=== PATIENT | male | born 1965 | race Caucasian/White ===

== ENCOUNTER 2021-10-08 14:54 | Outpatient (AMB) | payer MEDICARE, MEDICAID, SELFPAY ==
--- NOTE | 2021-10-08 14:58 | MHC.OFFVIS ---
Intake Intake Visit Reasons: 1 year PVR Follow Up Allergies codeine [CODEINE] Allergy (Unknown, Unverified 03/07/20 15:59) NAUSEA & VOMITING erythromycin base [ERYTHROMYCIN BASE] Allergy (Unknown, Unverified 03/07/20 15:59) NAUSEA & VOMITING Erythromycin Allergy (Unknown, Uncoded 08/31/19 00:00) HPI HPI Comments History of Present Illness Details Bryan is a very pleasant male. He is a patient of Dr. Pompa. He is seen for the following urologic conditions - has combination of CPPS with left orchalgia and urge/frequency - erectile dysfunction - high tone pelvic floor Main issue is feeling of low energy Concerned about testosterone level Has chronic opioids for pain Will check levels Does respond to tadalafil for erections Refill provided Discussed pelvic floor PT to assist with relaxation and bladder and bowel emptying Referral made Prostatitis/CPPS:? They present for ?evaluation of, chronic pelvic pain syndrome, chronic prostatitis, orchalgia.? He is currently being treated with?- has failed - OAB medications - oxybuytinin, Myrbetriq, antibitoics, alpha blockers.? Symptoms have been present?for many years.? Severity of the symptom?Prostate Symptom Score, severe, have been persistent, and are progressive - worse since colon diversion 3 months ago.? Chronic Prostatitis Symptom Index? Have you experienced pain in any of the following areas ?Yes ? Patient has experienced pain with urination ?Yes ? They have experienced pain with ejaculation ?No ? In the pubic area ?No ? Tip of the penis ?No ? Testicles ?Yes ? Perineal ?Yes ? Pain is present?lower back, perineum, testis, with ejaculation.? Associated conditions include? STDs ?No ? nephrolithiasis ?No ? diabetes ?No ? inflammatory bowel disease ?No ? diverticulitis ?No ? radiation to the pelvis ?No ? surgery ?none ? Type of prostatitis?III - noninflammatory.? Lower Urinary Tract Symptoms:? Erections respond to medications ?Cilais 10mg provided. ? Current visit is for?further evaluation of, lower urinary tract symptoms, predominate obstructive symptoms.? Current treatment includes?observation.? Prostate Symptom Score?Mild (0-8), Bother 3.? Prior Prostate Score?unknown.? Prostate volume?< 30 gm.? Associated conditions? CAD ?No ? CVA ?No ? diabetes ?No ? elevated PSA ?No ? erectile dysfunction ?No ? hematuria ?No ? renal insufficiency ?No ? urge incontinence ?No ? urinary retention ?No ? urinary tract infection ?No ? psychiatric diagnosis ?No ? Testing at next visit will include?bladder scan.? Treatment plan?continue with current medications [facility] Medical History (Updated 10/08/21 @ 15:27 by Tony Lucio MD) Bipolar disorder Bladder outlet obstruction Dysuria Erectile dysfunction due to arterial insufficiency Esophageal injury GERD (gastroesophageal reflux disease) HTN (hypertension) Insomnia Kidney disease Nocturia Panic disorder Prostatitis Weak urinary stream Surgical History History of surgery Review of Systems Const Denies chills and Denies fever(s) Card Reports no additional complaints and Denies syncope Resp Denies cough GI Denies abdominal pain and Denies heartburn Reports as per HPI and Denies change in libido Neuro Denies syncope Psych Denies change in libido Endo Denies change in libido Physical Exam Const General: cooperative, healthy appearing, comfortable and no acute distress Orientation/consciousness: patient oriented x3 HEENT Face and sinus: Yes normal facial exam Mouth: moist mucous membranes Neck Neck: Yes normal visual inspection, Yes full ROM and Yes trachea midline Chest Chest palpation & inspection: normal inspection of the chest Resp Effort & Inspection: normal respiratory effort, able to speak in complete sentences and no respiratory distress GI Inspection: Yes normal to inspection Back/Spine/Pelvis Cervical Spine: normal cervical lordosis Thoracic/Lumbar Spine: thoracic and lumbar spine normal to inspection Skin General skin exam: no rashes or lesions noted Neuro General: patient oriented x3, gait normal, tone normal and moves all extremities Extrem General: Yes normal to inspection and Yes capillary refill normal Office Procedures Post Void Residual Post Residual Void Post Void Residual (PVR): 0 [id number] Void Residual by ultrasound Assessment & Plan Assessment & Plan (1) Erectile dysfunction due to arterial insufficiency: Code(s): N52.01 - Erectile dysfunction due to arterial insufficiency (2) Chronic prostatitis/chronic pelvic pain syndrome: Code(s): N41.1 - Chronic prostatitis; G89.4 - Chronic pain syndrome (3) Prostatitis: Code(s): N41.9 - Inflammatory disease of prostate, unspecified (4) Bladder outlet obstruction: Code(s): N32.0 - Bladder-neck obstruction (5) Hypogonadism in male: Code(s): E29.1 - Testicular hypofunction Plan Labs ordered Prescription provided Referred to PT for pelvic floor relaxation Orders: Orders Follicle Stimulating Hormone Today E29.1 - Testicular hypofunction Lutenizing Hormone Today E29.1 - Testicular hypofunction Testosterone, Total Today E29.1 - Testicular hypofunction, [id number] Prostate Specific Antigen Today E29.1 - Testicular hypofunction, N13.8 - Other obstructive and reflux uropathy, N40.1 - Benign prostatic hyperplasia with lower urinary tract symptoms Testosterone, Free/Total 2 Weeks E29.1 - Testicular hypofunction PT Evaluation and Treatment Today G89.4 - Chronic pain syndrome, N41.1 - Chronic prostatitis AMB Urinalysis Automated Today Z13.9 - Encounter for screening, unspecified AMB Post Void Residual by ultrasound Today R35.1 - Nocturia Medications: New tadalafil as needed 10 mg PO ONCE 30 days PRN 30 tabs 1RF sexual activity N52.01 - Erectile dysfunction due to arterial insufficiency, N52.9 - Male erectile dysfunction, unspecified Patient Instructions: The patient had an opportunity to ask questions regarding treatment plan. All questions were answered. Imaging studies, laboratory studies and physical exam results were discussed and reviewed in detail. No major barriers to understanding were identified. The patient expressed understanding and agreement with the above treatment plan. The patient is aware they should contact our office by phone for worsening of their current condition or the appearance of new symptoms. Compliance is encouraged with any medications and followup testing that is ordered. It is a privilege to be allowed the opportunity to participate in the urologic care of your patient. If you have any questions or concerns regarding treatment for the above conditions please do not hesitate to contact me. The office telephone contact is [phone]. This note is constructed using voice recognition software. While every effort has been made to ensure accuracy coil finisher errors may have been included. Yours sincerely, Dr Tony Lucio MD, [facility] Coding Level of Care Code Est Pt Level 4 (01412) Diagnoses Erectile dysfunction due to arterial insufficiency N52.01 Chronic prostatitis/chronic pelvic pain syndrome N41.1; G89.4 Prostatitis N41.9 Bladder outlet obstruction N32.0 Hypogonadism in male E29.1 CPT Codes Post Residual Void - PVR CPT Code: 12920-Fxme Void Residual by ultrasound ([id number])
== END 2021-10-08 15:27 | disposition home or self-care (01) ==
LOC: HO.HUSH 14:54
PROVIDERS: PCP Internal Medicine; Visit Provider Urology
DX: Z13.9 Encounter for screening, unspecified (principal)
CPT/HCPCS: 99214

== ENCOUNTER → 2021-10-08 14:54 | Outpatient (BNVA) | payer MEDICARE, MEDICAID, SELFPAY | PROVIDERS: PCP Internal Medicine; Visit Provider Urology | DX: N52.01 Erectile dysfunction due to arterial insufficiency (principal); G89.4 Chronic pain syndrome; N41.1 Chronic prostatitis; N32.0 Bladder-neck obstruction; E29.1 Testicular hypofunction | CPT/HCPCS: 51798; 99212 ==

== ENCOUNTER → 2021-11-18 14:12 | Outpatient (BNVA) | payer MEDICARE, MEDICAID, SELFPAY | PROVIDERS: PCP Internal Medicine; Visit Provider Urology | DX: N52.01 Erectile dysfunction due to arterial insufficiency (principal); E29.1 Testicular hypofunction | CPT/HCPCS: 51798; 99212 ==

== ENCOUNTER → 2022-02-18 09:34 | Outpatient (BNVA) | payer MEDICARE, MEDICAID, SELFPAY | PROVIDERS: PCP Internal Medicine; Visit Provider Urology | DX: E11.69 Type 2 diabetes mellitus with other specified complication (principal); N52.1 Erectile dysfunction due to diseases classified elsewhere | CPT/HCPCS: Q3014 ==

== ENCOUNTER → 2022-06-02 13:19 | Outpatient (BNVA) | payer MEDICARE, MEDICAID, SELFPAY | PROVIDERS: PCP Internal Medicine; Visit Provider Urology | DX: E11.69 Type 2 diabetes mellitus with other specified complication (principal); N52.1 Erectile dysfunction due to diseases classified elsewhere; E29.1 Testicular hypofunction; N41.1 Chronic prostatitis; G89.4 Chronic pain syndrome | CPT/HCPCS: 99212 ==

== ENCOUNTER 2022-12-29 14:47 | Outpatient (AMB) | payer MEDICARE, MEDICAID, SELFPAY ==
--- NOTE | 2022-12-29 14:58 | A.OFFVIS_ITS ---
Intake Intake Visit Reasons: 6M PVR Intake Note: Patient is present for PVR/ Urology Med: Sildenafil, Tadalafil Antibiotic Allergy: Erythromycin Blood Thinner: None PVR: 48ml Allergies codeine [CODEINE] Allergy (Unknown, Verified 12/29/22 14:59) NAUSEA & VOMITING erythromycin base [ERYTHROMYCIN BASE] Allergy (Unknown, Verified 12/29/22 14:59) NAUSEA & VOMITING Erythromycin Allergy (Unknown, Uncoded 12/29/22 14:59) Unknown HPI HPI Comments History of Present Illness Details Bryan is a very pleasant male. He is a patient of Dr. Pompa. He is seen for the following urologic conditions - has combination of CPPS with left orchalgia and urge/frequency - erectile dysfunction secondary to diabetes - high tone pelvic floor Continued good response to high-dose PDE5 for erections Six-month follow-up Occasional difficulty with urination Erectile dysfunction with diabetes Partial response to combination erectile therapy 20 mg daily tadalafil with on demand 100 mg sildenafil Prostatitis/CPPS:? They present for ?evaluation of, chronic pelvic pain syndrome, chronic prostatitis, orchalgia.? He is currently being treated with?- no medications - prior OAB medications - oxybuytinin, Myrbetriq, antibitoics, alpha bloc kers.? Symptoms have been present?for many years.? Severity of the symptom?Prostate Symptom Score, severe, have been persistent, and are progressive - worse since colon diversion 3 months ago.? Chronic Prostatitis Symptom Index? Have you experienced pain in any of the following areas ?Yes ? Patient has experienced pain with urination ?Yes ? They have experienced pain with ejaculation ?No ? In the pubic area ?No ? Tip of the penis ?No ? Testicles ?Yes ? Perineal ?Yes ? Pain is present?lower back, perineum, testis, with ejaculation.? Associated conditions include? STDs ?No ? nephrolithiasis ?No ? diabetes ?No ? inflammatory bowel disease ?No ? diverticulitis ?No ? radiation to the pelvis ?No ? surgery ?none ? Type of prostatitis?III - noninflammatory.? Lower Urinary Tract Symptoms:? Erections respond to medications ?Cilais 20mg provided. ? Current visit is for?further evaluation of, lower urinary tract symptoms, predominate obstructive symptoms.? Current treatment includes?observation.? Prostate Symptom Score?Mild (0-8), Bother 3.? Prior Prostate Score?unknown.? Prostate volume?< 30 gm.? Testing at next visit will include?bladder scan.? Treatment plan?continue with current medications [facility] Medical History Bipolar disorder Bladder outlet obstruction Dysuria Erectile dysfunction due to arterial insufficiency Esophageal injury GERD (gastroesophageal reflux disease) HTN (hypertension) Insomnia Kidney disease Nocturia Panic disorder Prostatitis Weak urinary stream Surgical History History of surgery Review of Systems Const Denies chills and Denies fever(s) Card Reports no additional complaints and Denies syncope Resp Denies cough GI Denies abdominal pain and Denies heartburn Reports as per HPI and Denies change in libido Neuro Denies syncope Psych Denies change in libido Endo Denies change in libido Physical Exam Const General: cooperative, healthy appearing, comfortable and no acute distress Orientation/consciousness: patient oriented x3 HEENT Face and sinus: Yes normal facial exam Mouth: moist mucous membranes Neck Neck: Yes normal visual inspection, Yes full ROM and Yes trachea midline Chest Chest palpation & inspection: normal inspection of the chest Resp Effort & Inspection: normal respiratory effort, able to speak in complete sentences and no respiratory distress GI Inspection: Yes normal to inspection Back/Spine/Pelvis Cervical Spine: normal cervical lordosis Thoracic/Lumbar Spine: thoracic and lumbar spine normal to inspection Skin General skin exam: no rashes or lesions noted Neuro General: patient oriented x3, gait normal, tone normal and moves all extremities Extrem General: Yes normal to inspection and Yes capillary refill normal Office Procedures Post Void Residual Post Residual Void Post Void Residual (PVR): 48 [id number] Void Residual by ultrasound Results AMB Urinalysis, Automated UA Leukoctes 0 Jay Jay/uL Last Edit by Velma Salinas [facility] on 12/29/22 15:07 UA Nitrite Negative Last Edit by Velma Salinas A on 12/29/22 15:07 UA Urobilinogen 0.2 mg/dL Last Edit by Velma Salinas A on 12/29/22 15:0 7 UA Protein 0 mg/dL Last Edit by Velma Salinas A on 12/29/22 15:07 UA pH 6.0 Last Edit by Velma Salinas [facility] on 12/29/22 15:07 UA Blood 0 Pieter/uL Last Edit by Velma Salinas A on 12/29/22 15:07 UA Specific [place] 1.030 Last Edit by Velma Salinas A on 12/29/22 15: 07 UA Ketone Negative Last Edit by Velma Salinas A on 12/29/22 15:07 UA Bilirubin 0 mg/dL Last Edit by Velma Salinas A on 12/29/22 15:07 UA Glucose 0 mg/dL Last Edit by Velma Salinas [facility] on 12/29/22 15:07 Results Reviewed Results Reviewed: Laboratory Last Values Urine pH (Auto) 6.0 12/29/22 15:01 Specific [place] (Auto) 1.030 12/29/22 15:01 Urine Protein (Auto) 0 mg/dL 12/29/22 15:01 Glucose (UA)(Auto) 0 mg/dL 12/29/22 15:01 Urine Ketones (Auto) Negative 12/29/22 15:01 Urine Blood (Auto) 0 Pieter/uL 12/29/22 15:01 Urine Nitrite (Auto) Negative 12/29/22 15:01 Urine Bilirubin (Auto) 0 mg/dL 12/29/22 15:01 Urine Urobilinogen (Auto) 0.2 mg/dL 12/29/22 15:01 Leukocyte Esterase (Auto) 0 Jay Jay/uL 12/29/22 15:01 Assessment & Plan Assessment & Plan (1) Erectile dysfunction associated with type 2 diabetes mellitus: Code(s): E11.69 - Type 2 diabetes mellitus with other specified complication; N52.1 - Erectile dysfunction due to diseases classified elsewhere (2) Chronic prostatitis/chronic pelvic pain syndrome: Code(s): N41.1 - Chronic prostatitis; G89.4 - Chronic pain syndrome Plan 6 month follow-up Orders: Orders Prostate Specific Antigen 6 Months E29.1 - Testicular hypofunction AMB Urinalysis Automated Today Z13.9 - Encounter for screening, unspecified AMB Post Void Residual by ultrasound Today N32.0 - Bladder-neck obstruction Patient Instructions: Imaging studies, laboratory and physical exam results were discussed and reviewed in detail. No major barriers to patient understanding were identified. An opportunity to ask questions regarding the treatment plan was provided. All questions were answered. The patient expressed understanding and agreement with the above treatment plan. The patient is aware they should contact our office by phone for worsening of their current condition or the appearance of new urologic symptoms. Compliance is encouraged with any medications and followup testing that is ordered. It is a privilege to participate in the urologic care of your patient. If you have any questions or concerns regarding treatment for the above conditions, or other urologic issues, please do not hesitate to contact me. The office telephone contact is [phone]. This note is constructed using voice recognition software. While every effort has been made to ensure accuracy head baker errors may have been included. Yours sincerely, Dr Tony Lucio MD, [facility] - Urology Providers of Expert, Compassionate Care for the Genitourinary System Coding Level of Care Code Est Pt Level 3 (07746) Diagnoses Erectile dysfunction associated with type 2 diabetes mellitus E11.69; N52.1 Chronic prostatitis/chronic pelvic pain syndrome N41.1; G89.4 CPT Codes Post Residual Void - PVR CPT Code: 62228-Ccaz Void Residual by ultrasound ([id number])
== END 2022-12-29 15:43 | disposition home or self-care (01) ==
PROVIDERS: Visit Provider Urology
DX: E11.69 Type 2 diabetes mellitus with other specified complication (principal); N52.1 Erectile dysfunction due to diseases classified elsewhere; N41.1 Chronic prostatitis; G89.4 Chronic pain syndrome
CPT/HCPCS: 99213

== ENCOUNTER → 2022-12-29 14:47 | Outpatient (BNVA) | payer MEDICARE, MEDICAID, SELFPAY | PROVIDERS: Visit Provider Urology | DX: E11.69 Type 2 diabetes mellitus with other specified complication (principal); N52.1 Erectile dysfunction due to diseases classified elsewhere; N41.1 Chronic prostatitis; G89.4 Chronic pain syndrome | CPT/HCPCS: 51798; 99212 ==

== ENCOUNTER 2023-07-02 15:39 | Outpatient (AMB) | payer MEDICARE, MEDICAID, SELFPAY ==
--- NOTE | 2023-07-02 15:44 | A.OFFVIS_ITS ---
Intake Intake Visit Reasons: 6m psa(set) Intake Note: Patient is Present for Follow Up Urology Medication: Sildenafil, Taldalafil Antibiotic Allergies: Erytromycin Blood Thinners: none Allergies codeine [CODEINE] Allergy (Unknown, Verified 12/29/22 14:59) NAUSEA & VOMITING erythromycin base [ERYTHROMYCIN BASE] Allergy (Unknown, Verified 12/29/22 14:59) NAUSEA & VOMITING Erythromycin Allergy (Unknown, Uncoded 12/29/22 14:59) Unknown Medication List - Last Reconciled 07/02/23 by Tony Lucio MD alcohol swabs (Easy Touch Alcohol Prep Pads) pad topical BID amlodipine 5 mg PO DAILY blood sugar diagnostic (FreeStyle Lite Strips) As directed blood-glucose meter (FreeStyle Lite Meter kit) As directed citalopram 10 mg PO DAILY citalopram 40 mg PO DAILY gabapentin 300 mg PO BID PRN hydrocortisone 2.5% topical lactulose mL PO lancets (FreeStyle Lancets) As directed lisdexamfetamine (Vyvanse) 70 mg PO QAM lisinopril 40 mg PO DAILY methylphenidate HCl 0 mg PO morphine 30 mg PO TID PRN pantoprazole 40 mg PO BID ropinirole 0.5 - 1 mg PO QPM sildenafil 100 mg PO ONCE 30 days tadalafil 20 mg PO DAILY 90 days HPI HPI Comments History of Present Illness Details Bryan is a very pleasant male. He is a patient of Dr. Pompa. He is seen for the following urologic conditions - has combination of CPPS with left orch algia and urge/frequency - erectile dysfunction secondary to diab etes - high tone pelvic floor Continued good response to high-dose PDE5 for erections Six-month follow-up Occasional difficulty with urination Six-month follow-up PSA office Erectile dysfunction with diabetes Partial response to combination erectile therapy 20 mg daily tadalafil with on demand 100 mg sildenafil Prostatitis/CPPS:? They present for ?evaluation of, chronic pelvic pain syndrome, chronic prostatitis, orchalgia.? He is currently being treated with?- no medications - prior OAB medications - oxybuytinin, Myrbetriq, antibitoics, alpha blockers.? Symptoms have been present?for many years.? Severity of the symptom?Prostate Symptom Score, severe, have been persistent, and are progressive - worse since colon diversion 3 months ago.? Chronic Prostatitis Symptom Index? Have you experienced pain in any of the following areas ?Yes ? Patient has experienced pain with urination ?Yes ? They have experienced pain with ejaculation ?No ? In the pubic area ?No ? Tip of the penis ?No ? Testicles ?Yes ? Perineal ?Yes ? Pain is present?lower back, perineum, testis, with ejaculation.? Associated conditions include? STDs ?No ? nephrolithiasis ?No ? diabetes ?No ? inflammatory bowel disease ?No ? diverticulitis ?No ? radiation to the pelvis ?No ? surgery ?none ? Type of prostatitis?III - noninflammatory.? Lower Urinary Tract Symptoms:? Erections respond to medications ?Cilais 20mg provided. ? Current visit is for?further evaluation of, lower urinary tract symptoms, predominate obstructive symptoms.? Current treatment includes?observation.? Prostate Symptom Score?Mild (0-8), Bother 3.? Prior Prostate Score?unknown.? Prostate volume?< 30 gm.? Testing at next visit will include?bladder scan.? Treatment plan?continue with current medications [facility] Medical History Bipolar disorder Bladder outlet obstruction Dysuria Erectile dysfunction due to arterial insufficiency Esophageal injury GERD (gastroesophageal reflux disease) HTN (hypertension) Insomnia Kidney disease Nocturia Panic disorder Prostatitis Weak urinary stream Surgical History History of surgery Review of Systems Const Denies chills and Denies fever(s) Card Reports no additional complaints and Denies syncope Resp Denies cough GI Denies abdominal pain and Denies heartburn Reports as per HPI and Denies change in libido Neuro Denies syncope Psych Denies change in libido Endo Denies change in libido Physical Exam Const General: cooperative, healthy appearing, comfortable and no acute distress Orientation/consciousness: patient oriented x3 HEENT Face and sinus: Yes normal facial exam Mouth: moist mucous membranes Neck Neck: Yes normal visual inspection, Yes full ROM and Yes trachea midline Chest Chest palpation & inspection: normal inspection of the chest Resp Effort & Inspection: normal respiratory effort, able to speak in complete sentences and no respiratory distress GI Inspection: Yes normal to inspection Back/Spine/Pelvis Cervical Spine: normal cervical lordosis Thoracic/Lumbar Spine: thoracic and lumbar spine normal to inspection Skin General skin exam: no rashes or lesions noted Neuro General: patient oriented x3, gait normal, tone normal and moves all extremities Extrem General: Yes normal to inspection and Yes capillary refill normal Assessment & Plan Assessment & Plan (1) Erectile dysfunction associated with type 2 diabetes mellitus: Code(s): E11.69 - Type 2 diabetes mellitus with other specified complication; N52.1 - Erectile dysfunction due to diseases classified elsewhere (2) Bladder outlet obstruction: Code(s): N32.0 - Bladder-neck obstruction Plan Six-month follow-up tele Medications: Refilled tadalafil daily 20 mg PO DAILY 90 tabs 1RF sexual activity 90 days E11.69 - Type 2 diabetes mellitus with other specified complication, N52.1 - Erectile dysfunction due to diseases classified elsewhere sildenafil administer 60 minutes before intended activity 100 mg PO ONCE 30 tabs 1RF sexual activity 30 days N52.01 - Erectile dysfunction due to arterial insufficiency Patient Instructions: Imaging studies, laboratory and physical exam results were discussed and reviewed in detail. No major barriers to patient understanding were identified. An opportunity to ask questions regarding the treatment plan was provided. All questions were answered. The patient expressed understanding and agreement with the above treatment plan. The patient is aware they should contact our office by phone for worsening of their current condition or the appearance of new urologic symptoms. Compliance is encouraged with any medications and followup testing that is ordered. It is a privilege to participate in the urologic care of your patient. If you have any questions or concerns regarding treatment for the above conditions, or other urologic issues, please do not hesitate to contact me. The office telephone contact is [phone]. This note is constructed using voice recognition software. While every effort has been made to ensure accuracy government guard errors may have been included. Yours sincerely, Dr Tony Lucio MD, [facility] - Urology Providers of Expert, Compassionate Care for the Genitourinary System Coding Level of Care Code Est Pt Level 3 (81547) Diagnoses Erectile dysfunction associated with type 2 diabetes mellitus E11.69; N52.1 Bladder outlet obstruction N32.0
== END 2023-07-02 15:57 | disposition home or self-care (01) ==
PROVIDERS: PCP Internal Medicine; Visit Provider Urology
DX: E11.69 Type 2 diabetes mellitus with other specified complication (principal); N52.1 Erectile dysfunction due to diseases classified elsewhere; N32.0 Bladder-neck obstruction
CPT/HCPCS: 99213

== ENCOUNTER → 2023-07-02 15:39 | Outpatient (BNVA) | payer MEDICARE, MEDICAID, SELFPAY | PROVIDERS: PCP Internal Medicine; Visit Provider Urology | DX: E11.69 Type 2 diabetes mellitus with other specified complication (principal); N52.1 Erectile dysfunction due to diseases classified elsewhere; N32.0 Bladder-neck obstruction | CPT/HCPCS: 99212 ==

== ENCOUNTER 2024-02-08 15:03 | Outpatient (AMB) | payer MEDICARE, MEDICAID, SELFPAY ==
--- NOTE | 2024-02-08 15:23 | A.OFFVIS_ITS ---
Intake Visit Reasons: 6M Follow Up-PVR Intake Note: Patient is Present for PVR/UA Check Urology Med: Sildenafil, Tadalafil Antibiotic Allergy:Erythromycin Blood Thinner: none Last PVR: 48mls Todays PVR: Patient has some concerns on his urination [employer] Contractor Required: No Allergies codeine [CODEINE] Allergy (Unknown, Verified 02/08/24 15:33) NAUSEA & VOMITING erythromycin base [ERYTHROMYCIN BASE] Allergy (Unknown, Verified 02/08/24 15:33) NAUSEA & VOMITING Erythromycin Allergy (Unknown, Uncoded 02/08/24 15:33) Unknown Medication List - Last Reconciled 02/08/24 by Tony Lucio MD alcohol swabs (Easy Touch Alcohol Prep Pads) pad topical BID amlodipine 5 mg PO DAILY blood sugar diagnostic (FreeStyle Lite Strips) As directed blood-glucose meter (FreeStyle Lite Meter kit) As directed citalopram 10 mg PO DAILY citalopram 40 mg PO DAILY gabapentin 300 mg PO BID PRN hydrocortisone 2.5% topical lactulose mL PO lancets (FreeStyle Lancets) As directed lisdexamfetamine (Vyvanse) 70 mg PO QAM lisinopril 40 mg PO DAILY methylphenidate HCl 0 mg PO morphine 30 mg PO TID PRN pantoprazole 40 mg PO BID ropinirole 0.5 - 1 mg PO QPM sildenafil 100 mg PO ONCE 30 days tadalafil 20 mg PO DAILY 90 days HPI Comments Details: Bryan is a very pleasant male. He is a patient of Dr. Pompa. He is seen for the following urologic conditions - has combination of CPPS with left orchalgia and urge/frequency - erectile dysfunction secondary to diabetes - high tone pelvic floor Has had flare of pelvic floor issues Continued good response to high-dose PDE5 for erections Six-month follow-up Occasional difficulty with urination Trial rectal diazepam Six-month follow-up PSA Erectile dysfunction with diabetes Partial response to combination erectile therapy 20 mg daily tadalafil with on demand 100 mg sildenafil Prostatitis/CPPS:? They present for ?evaluation of, chronic pelvic pain syndrome, chronic prostatitis, orchalgia.? He is currently being treated with?- no medications - prior OAB medications - oxybuytinin, Myrbetriq, antibitoics, alpha blockers.? Symptoms have been present?for many years.? Severity of the symptom?Prostate Symptom Score, severe, have been persistent, and are progressive - worse since colon diversion 3 months ago.? Chronic Prostatitis Symptom Index? Have you experienced pain in any of the following areas ?Yes ? Patient has experienced pain with urination ?Yes ? They have experienced pain with ejaculation ?No ? In the pubic area ?No ? Tip of the penis ?No ? Testicles ?Yes ? Perineal ?Yes ? Pain is present?lower back, perineum, testis, with ejaculation.? Associated conditions include? STDs ?No ? nephrolithiasis ?No ? diabetes ?No ? inflammatory bowel disease ?No ? diverticulitis ?No ? radiation to the pelvis ?No ? surgery ?none ? Type of prostatitis?III - noninflammatory.? Lower Urinary Tract Symptoms:? Erections respond to medications ?Cilais 20mg provided. ? Current visit is for?further evaluation of, lower urinary tract symptoms, predominate obstructive symptoms.? Current treatment includes?observation.? Prostate Symptom Score?Mild (0-8), Bother 3.? Prior Prostate Score?unknown.? Prostate volume?< 30 gm.? Testing at next visit will include?bladder scan.? Treatment plan?continue with current medications [facility] Medical History Bipolar disorder Bladder outlet obstruction Dysuria Erectile dysfunction due to arterial insufficiency Esophageal injury GERD (gastroesophageal reflux disease) HTN (hypertension) Insomnia Kidney disease Nocturia Panic disorder Prostatitis Weak urinary stream Surgical History History of surgery Review of Systems Const Denies chills and Denies fever(s) Card Reports no additional complaints and Denies syncope Resp Denies cough GI Denies abdominal pain and Denies heartburn Reports as per HPI and Denies change in libido Neuro Denies syncope Psych Denies change in libido Endo Denies change in libido Physical Exam Const General: cooperative, healthy appearing, comfortable and no acute distress Orientation/consciousness: patient oriented x3 HEENT Face and sinus: Yes normal facial exam Mouth: moist mucous membranes Neck Neck: Yes normal visual inspection, Yes full ROM and Yes trachea midline Chest Chest palpation & inspection: normal inspection of the chest Resp Effort & Inspection: normal respiratory effort, able to speak in complete sentences and no respiratory distress GI Inspection: Yes normal to inspection Back/Spine/Pelvis Cervical Spine: normal cervical lordosis Thoracic/Lumbar Spine: thoracic and lumbar spine normal to inspection Skin General skin exam: no rashes or lesions noted Neuro General: patient oriented x3, gait normal, tone normal and moves all extremities Extrem General: Yes normal to inspection and Yes capillary refill normal Results AMB Urinalysis, Automated UA Leukoctes 15 Jay Jay/uL Last Edit by KILEY Muhammad on 02/08/24 15:40 UA Nitrite Negative Last Edit by KILEY Muhammad on 02/08/24 15:40 UA Urobilinogen 0.2 mg/dL Last Edit by KILEY Muhammad on 02/08/24 15:4 0 UA Protein 30 mg/dL Last Edit by KILEY Muhammad on 02/08/24 15:40 UA pH 6.0 Last Edit by KILEY Muhammad on 02/08/24 15:40 UA Blood 0 Pieter/uL Last Edit by KILEY Muhammad on 02/08/24 15:40 UA Specific Kayenta 1.020 Last Edit by KILEY Muhammad on 02/08/24 15: 40 UA Ketone Negative Last Edit by KILEY Muhammad on 02/08/24 15:40 UA Bilirubin 1 mg/dL Last Edit by NICOLASA MuhammadA on 02/08/24 15:40 UA Glucose 0 mg/dL Last Edit by KILEY Muhmamad on 02/08/24 15:40 Results Reviewed Results Reviewed: Laboratory Last Values Urine pH (Auto) 6.0 02/08/24 15:39 Specific Kayenta (Auto) 1.020 02/08/24 15:39 Urine Protein (Auto) 30 mg/dL 02/08/24 15:39 Glucose (UA)(Auto) 0 mg/dL 02/08/24 15:39 Urine Ketones (Auto) Negative 02/08/24 15:39 Urine Blood (Auto) 0 Pieter/uL 02/08/24 15:39 Urine Nitrite (Auto) Negative 02/08/24 15:39 Urine Bilirubin (Auto) 1 mg/dL 02/08/24 15:39 Urine Urobilinogen (Auto) 0.2 mg/dL 02/08/24 15:39 Leukocyte Esterase (Auto) 15 Jay Jay/uL 02/08/24 15:39 Assessment & Plan Assessment & Plan (1) Erectile dysfunction associated with type 2 diabetes mellitus: Code(s): E11.69 - Type 2 diabetes mellitus with other specified complication; N52.1 - Erectile dysfunction due to diseases classified elsewhere Category: Medical (2) Chronic prostatitis/chronic pelvic pain syndrome: Code(s): N41.1 - Chronic prostatitis; G89.4 - Chronic pain syndrome Category: Medical Plan Six-month follow-up Diazepam rectally Daily tadalafil Orders: Orders AMB Urinalysis Automated 02/08/24 Z13.9 - Encounter for screening, unspecified Medications: New diazepam Crush and mix with water based gel before placing per rectum 10 mg PO BEDTIME PRN 10 tabs 0RF pelvic floor spasm 30 days N41.1 - Chronic prostatitis, G89.4 - Chronic pain syndrome Refilled tadalafil daily 20 mg PO DAILY 90 tabs 1RF sexual activity 90 days E11.69 - Type 2 diabetes mellitus with other specified complication, N52.1 - Erectile dysfunction due to diseases classified elsewhere Patient Instructions: Imaging studies, laboratory and physical exam results were discussed and reviewed in detail. No major barriers to patient understanding were identified. An opportunity to ask questions regarding the treatment plan was provided. All questions were answered. The patient expressed understanding and agreement with the above treatment plan. The patient is aware they should contact our office by phone for worsening of their current condition or the appearance of new urologic symptoms. Compliance is encouraged with any medications and followup testing that is ordered. It is a privilege to participate in the urologic care of your patient. If you have any questions or concerns regarding treatment for the above conditions, or other urologic issues, please do not hesitate to contact me. The office telephone contact is [phone]. This note is constructed using voice recognition software. While every effort has been made to ensure accuracy coroner transport technician errors may have been included. Yours sincerely, Dr Tony Lucio MD, [facility] - Urology Providers of Expert, Compassionate Care for the Genitourinary System Coding Level of Care Code Est Pt Level 4 (41579) Diagnoses Erectile dysfunction associated with type 2 diabetes mellitus E11.69; N52.1 Chronic prostatitis/chronic pelvic pain syndrome N41.1; G89.4
== END 2024-02-08 16:13 | disposition home or self-care (01) ==
PROVIDERS: PCP Internal Medicine; Visit Provider Urology
DX: E11.69 Type 2 diabetes mellitus with other specified complication (principal); N52.1 Erectile dysfunction due to diseases classified elsewhere; N41.1 Chronic prostatitis; G89.4 Chronic pain syndrome
CPT/HCPCS: 99214

== ENCOUNTER → 2024-02-08 15:03 | Outpatient (BNVA) | payer MEDICARE, MEDICAID, SELFPAY | PROVIDERS: PCP Internal Medicine; Visit Provider Urology | DX: E11.69 Type 2 diabetes mellitus with other specified complication (principal); N52.01 Erectile dysfunction due to arterial insufficiency; N41.1 Chronic prostatitis; G89.4 Chronic pain syndrome | CPT/HCPCS: 81003; 99212 ==

== ENCOUNTER 2024-08-08 13:38 | Outpatient (AMB) | payer MEDICARE, MEDICAID, SELFPAY ==
--- NOTE | 2024-08-08 13:39 | A.OFFVIS_ITS ---
Intake Visit Reasons: 6M Med Review(Diazapem)prostatitis Intake Note: Patient presents today for televisit follow up on: prostatitis Urology Med: Sildenafil, Tadalafil , fesoterodine, diazepam Antibiotic Allergy:Erythromycin Blood Thinner: none Business Affairs Manager Required: No Allergies codeine [CODEINE] Allergy (Unknown, Verified 08/08/24 14:38) NAUSEA & VOMITING erythromycin base [ERYTHROMYCIN BASE] Allergy (Unknown, Verified 08/08/24 14:38) NAUSEA & VOMITING Erythromycin Allergy (Unknown, Uncoded 08/08/24 14:38) Unknown Medication List - Last Reconciled 08/08/24 by Tony Lucio MD alcohol swabs (Easy Touch Alcohol Prep Pads) pad topical BID amlodipine 5 mg PO DAILY blood sugar diagnostic (FreeStyle Lite Strips) As directed blood-glucose meter (FreeStyle Lite Meter kit) As directed citalopram 40 mg PO DAILY gabapentin 300 mg PO BID PRN hydrocortisone 2.5% topical lactulose mL PO lancets (FreeStyle Lancets) As directed lisdexamfetamine (Vyvanse) 70 mg PO QAM lisinopril 40 mg PO DAILY methylphenidate HCl 0 mg PO morphine 30 mg PO TID PRN pantoprazole 40 mg PO BID ropinirole 0.5 - 1 mg PO QPM sildenafil 100 mg PO ONCE 30 days tadalafil 20 mg PO DAILY 90 days HPI Comments Details: Bryan is a very pleasant male. He is a patient of Dr. Pompa. He is seen for the following urologic conditions - has combination of CPPS with left orchalgia and urge/frequency - erectile dysfunction secondary to diabetes - high tone pelvic floor Telemedicine Evaluation 15 min Consultation Velteo Linda Video Six-month follow-up Prior trial of rectal Valium - did have short term benefit Continued good response to high-dose PDE5 for erections Occasional difficulty with urination Refill PDE5 Having issues with bowel function and may need diversion Erectile dysfunction with diabetes Partial response to combination erectile therapy 20 mg daily tadalafil with on demand 100 mg sildenafil Prostatitis/CPPS:? They present for ?evaluation of, chronic pelvic pain syndrome, chronic prostatitis, orchalgia.? He is currently being treated with?- no medications - prior OAB medications - oxybuytinin, Myrbetriq, antibitoics, alpha blockers.? Symptoms have been present?for many years.? Severity of the symptom?Prostate Symptom Score, severe, have been persistent, and are progressive - worse since colon diversion 3 months ago.? Chronic Prostatitis Symptom Index? Have you experienced pain in any of the following areas ?Yes ? Patient has experienced pain with urination ?Yes ? They have experienced pain with ejaculation ?No ? In the pubic area ?No ? Tip of the penis ?No ? Testicles ?Yes ? Perineal ?Yes ? Pain is present?lower back, perineum, testis, with ejaculation.? Associated conditions include? STDs ?No ? nephrolithiasis ?No ? diabetes ?No ? inflammatory bowel disease ?No ? diverticulitis ?No ? radiation to the pelvis ?No ? surgery ?none ? Type of prostatitis?III - noninflammatory.? Lower Urinary Tract Symptoms:? Erections respond to medications ?Cilais 20mg provided. ? Current visit is for?further evaluation of, lower urinary tract symptoms, predominate obstructive symptoms.? Current treatment includes?observation.? Prostate Symptom Score?Mild (0-8), Bother 3.? Prior Prostate Score?unknown.? Prostate volume?< 30 gm.? Testing at next visit will include?bladder scan.? Treatment plan?continue with current medications PFSH Medical History Bipolar disorder Bladder outlet obstruction Dysuria Erectile dysfunction due to arterial insufficiency Esophageal injury GERD (gastroesophageal reflux disease) HTN (hypertension) Insomnia Kidney disease Nocturia Panic disorder Prostatitis Weak urinary stream Surgical History History of surgery Review of Systems Const All systems reviewed & are unremarkable except as noted in HPI and below Reports no additional complaints Resp Reports no additional complaints GI Reports no additional complaints Reports as per HPI Musc Reports no additional complaints Physical Exam Telemedicine evaluation Appropriate responses Regular breathing rate and rhythm HEENT Head: Yes normal to inspection Ears: hearing grossly normal bilaterally Eyes General: appearance normal, both eyes and all related structures Neck Neck: Yes normal visual inspection Chest Chest palpation & inspection: normal inspection of the chest Resp Effort & Inspection: normal respiratory effort and able to speak in complete sentences Telehealth Telehealth Telehealth Platform: Velteo Location of provider rendering services: practice address Location of patient: address on file Patient Identification confirmed using: Name, : Yes Telehealth method: video Patient verbally consented to treatment: Yes Patient verbally consented to billing insurance company: Yes Patient informed of any privacy concerns related to visit: Yes Minutes spent on Phone/Video with Pt.: 15 Assessment & Plan Assessment & Plan (1) Chronic prostatitis/chronic pelvic pain syndrome: Code(s): N41.1 - Chronic prostatitis; G89.4 - Chronic pain syndrome Category: Medical (2) Erectile dysfunction associated with type 2 diabetes mellitus: Code(s): E11.69 - Type 2 diabetes mellitus with other specified complication; N52.1 - Erectile dysfunction due to diseases classified elsewhere Category: Medical Plan Refill bladder stability in ED medication Medications: Refilled sildenafil administer 60 minutes before intended activity 100 mg PO ONCE 30 days 30 tabs 1RF sexual activity N52.01 - Erectile dysfunction due to arterial insuffi ciency tadalafil daily 20 mg PO DAILY 90 days 90 tabs 1RF sexual activity E11.69 - Type 2 diabetes mellitus with other specified complication, N52.1 - Erectile dysfuncti on due to diseases classified elsewhere Discontinued diazepam Crush and mix with water based gel before placing per rectum Discontinued Reason: Patient Completed Course 10 mg PO BEDTIME 30 days PRN 10 tabs 0RF pelvic floor spasm G89.4 - Chronic pain syndrome, N41.1 - Chronic prostatitis fesoterodine ER (Toviaz) Discontinued Reason: Patient Completed Course 8 mg PO DAILY 30 days 30 tabs 1RF Patient Instructions: This note is constructed using voice recognition software. While every effort has been made to ensure accuracy chemistry physics teacher errors may have been included. Imaging studies, laboratory and physical exam results were discussed and r eviewed in detail. No major barriers to patient understanding were identified. An opportunity to ask questions regarding the treatment plan was provided. All questions were answered. The patient expressed understanding and agreement with the above treatment plan. The patient is aware they should contact our office by phone for worsening of their current condition or the appearance of new urologic symptoms. Compliance is encouraged with any medications and followup testing that is ordered. It is a privilege to participate in the urologic care of your patient. If you have any questions or concerns regarding treatment for the above conditions, or other urologic issues, please do not hesitate to contact me. The office telephone contact is [phone]. Sincerely, Dr Tony Lucio MD, [facility] - Urology Compassionate Specialist Care for the Genitourinary System Coding Level of Care Code Tele Est Pt Level 3 (02062) Complex EM visit Add On G2211 Diagnoses Chronic prostatitis/chronic pelvic pain syndrome N41.1; G89.4 Erectile dysfunction associated with type 2 diabetes mellitus E11.69; N52.1
--- OUTSIDE RECORDS SUMMARY | 2024-08-08 14:35 | XMS_ITS | Continuity of Care Document ---
Author Organization [facility] Address [address] [place] [address]- Care Team Providers Care Field Operations Technician Name Role Phone Peña DUMONT, Milo Bal Primary Care Physician [facility])[phone] [id number] - [facility]24 [facility] [address] [place] [address]- Encounter Diagnosis Constipation(Discharge Diagnosis) - 06/07/24 Attending Physician: Syed Jimenez MD Admitting Physician: Syed Jimenez MD Referring Physician: Jennifer Vitale NP Encounter Type: Pre-OutPatient One Time Allergies, Adverse Reactions, Alerts Substance Criticality Severity Reaction Reaction Severity Status codeine VOMITING Active oxyCODONE Itching Rash Active erythromycin nausea Active Problem List Condition Confirmation Course Effective Dates Status Health St atus Informant Bipolar affective disorder Confirmed Active Marijuana use Confirmed Active CKD (chronic kidney disease) stage 3, GFR 30-59 ml/min Confirmed Active Depression Confirmed Active Former cigarette smoker Confirmed Active Limitation due to disability 1 Confirmed Active Drug or alcohol risk assessment or counseling 2 Confirmed Active History of surgery 3 Confirmed Active Use of opiates for therapeutic purposes Confirmed Active History of alcohol abuse Confirmed Active HTN (hypertension) Confirmed Active Abdominal pain Confirmed Active Testicular pain Confirmed Active Shoulder pain Confirmed Active Persistent moderate somatic symptom disorder with predominant pain Confirmed Active 1initial Oswestry Disability Index: 46% ( severe disability ) on 03/31/16 2SOAPP-R: 47 on 03/31/16 3Emergent low anterior resection with end colostomy creation for a rectosigmoid perforation at [facility] in December 2015 Diagnosis Diagnosis Type Effective Dates Health Status Cl inical Service Informant Constipation Discharge Diagnosis 06/07/24 Social History Social History Type Response Smoking Status Current every day sm oker; Type: marijuana entered on: 08/26/16 Sex Sex Representation Male (finding) Patient Care team information Care Team Personnel Name: Chintan Smyth RN Position: [facility] RN Member Role: Primary Care Nurse Name: Milo Pompa MD Position: [facility] Outreach Member Role: PCP Address: [address] [place] [address] Telecom: Name: Karen Richards RN Position: [facility] Hospital Classification Clerk Member Role: Primary Care Nurse Care Team Related Persons Name: DAVID CUEVAS Name: SHARON CUEVAS Name: SANJANA HENNING Name: JOSE NARANJO Insurance Providers Guarantor name: DEBBIE NARANJO Health Plan Information #: 2 Payer: [facility] Member Number: [id number] Policy Number: NA Group Number: NA Health Plan Information #: 1 Payer: MEDICARE PART B OUTPT Member Number: [id number] Policy Number: NA Group Number: NA
--- OUTSIDE RECORDS SUMMARY | 2024-08-08 14:35 | XMS_ITS | Continuity of Care Document ---
Author Organization [facility] Address [address] [place] [address] [address] [place] [address]- Care Team Providers Care Manager File Name Role Phone Peña DUMONT, Milo Bal Primary Care Physician Encounter [facility] Date(s): 06/22/24 - 07/22/[address] [place] [address]- Attending Physician: Admtr, Ar8 Admitting Physician: Admtr, Ar8 Referring Physician: Admtr, Ar8 Encounter Type: Triage Allergies, Adverse Reactions, Alerts Substance Criticality Severity [...] colostomy creation for a rectosigmoid perforation at [facility] in December 2015 Social History Social History Type Response Smoking Status Current every day sm oker; Type: marijuana entered on: 08/26/16 Sex Sex Representation Male (finding) Laboratory * Event Display: Non Lab Results Authored Date: [id number] Patient Care team information Care Team Personnel Name: Chintan Smyth RN Position: [facility] RN Member Role: Primary Care Nurse Name: Milo Pompa MD Position: [facility] Outreach Member Role: PCP Address: [address] [place] [address] Telecom: Name: Karen Richards RN Position: [facility] Hospital Veneer Production Machine Operator Member Role: Primary Care Nurse Care Team Related Persons Name: DAVID CUEVAS Name: SHARON CUEVAS Name: SANJANA HENNING Name: JOSE NARANJO Insurance Providers Guarantor name: DEBBIE NARANJO Health Plan Information #: 1 Payer: MEDICARE PART B OUTPT Member Number: NA Policy Number: NA Group Number: NA Health Plan Information #: 2 [facility]: [facility] Member Number: NA Policy Number: NA Group Number: NA
--- OUTSIDE RECORDS SUMMARY | 2024-08-08 14:35 | XMS_ITS | Continuity of Care Document ---
Author Organization [facility] Address [address] [place] [address]- Care Team Providers Care Clinical Manager Home Care Name Role Phone Peña DUMONT, Milo Bal Primary Care Physician [facility])[phone] Encounter [facility] Date(s): 06/08/24 - 07/08/24 [facility] [address] [place] [address] Attending Physician: Nelda Cobb Admitting Physician: Nelda Cobb Referring Physician: Nelda Cobb Encounter Type: Triage Allergies, Adverse Reactions, Alerts [...] colostomy creation for a rectosigmoid perforation at [facility] in December 2015 Social History Social History Type Response Smoking Status Current every day sm oker; Type: marijuana entered on: 08/26/16 Sex Sex Representation Male (finding) Laboratory * Event Display: Non BH Lab Results Authored Date: * Event Display: Non BH Lab Results Authored Date: Radiology * Event Display: MRI Shoulder, Non- BH Authored Date: * Event Display: CT Scan Chest, Non- BH Authored Date: * Event Display: CT Scan Neck, Non- BH Authored Date: Patient Care team information Care Team Personnel Name: Chintan Smyth RN Position: [facility] RN Member Role: Primary Care Nurse Name: Milo Pompa MD Position: [facility] Outreach Member Role: PCP Address: [address] [place] [address] Telecom: Name: Karen Richards RN Position: [facility] Strip Cutting Machine Operator Member Role: Primary Care Nurse Care Team Related Persons Name: DAVID CUEVAS Name: SHARON CUEVAS Name: SNAJANA HENNING Name: JOSE NARANJO Insurance Providers Guarantor name: DEBBIE NARANJO Health Plan Information #: 1 Payer: MEDICARE PART B OUTPT Member Number: NA Policy Number: NA Group Number: NA Health Plan Information #: 2 Payer: [facility] Member Number: NA Policy Number: NA Group Number: NA
== END 2024-08-08 14:11 | disposition home or self-care (01) ==
LOC: HO.HUSH 13:38
PROVIDERS: PCP Internal Medicine; Visit Provider Urology
DX: N41.1 Chronic prostatitis (principal); G89.4 Chronic pain syndrome; E11.69 Type 2 diabetes mellitus with other specified complication; N52.1 Erectile dysfunction due to diseases classified elsewhere
CPT/HCPCS: 99213; G2211

== ENCOUNTER → 2024-08-08 13:38 | Outpatient (BNVA) | payer MEDICARE, MEDICAID, SELFPAY | PROVIDERS: PCP Internal Medicine; Visit Provider Urology ==

== ENCOUNTER 2025-04-17 14:08 | Outpatient (AMB) | payer MEDICARE, MEDICAID, SELFPAY ==
--- NOTE | 2025-04-17 14:18 | A.OFFVIS_ITS ---
Intake Visit Reasons: 6m follow up Intake Note: Patient presents today for 6 mo follow up for prostatitis Urology Med: Sildenafil, Tadalafil , Vesicare Antibiotic Allergy:Erythromycin Blood Thinner: none PVR: 21 mls Manager Philosophy Required: No Accompanied by: Self / Same As Patient Allergies codeine (CODEINE) Allergy (Unknown, Verified 04/17/25 14:31) NAUSEA & VOMITING erythromycin base (ERYTHROMYCIN BASE) Allergy (Unknown, Verified 04/17/25 14:31) NAUSEA & VOMITING Erythromycin Allergy (Unknown, Uncoded 08/08/24 14:38) Unknown HPI Comments Details: Bryan is a very pleasant male. He is a patient of Dr. Pompa. He is seen for the following urologic conditions - has combination of CPPS with left orchalgia and urge/frequency - erectile dysfunction secondary to diabetes - high tone pelvic floor Six-month follow-up Urinary urgency Partial success with solifenacin Trial Toviaz high-dose Continued good response to high-dose PDE5 for erections Occasional difficulty with urination Refill PDE5 Having issues with bowel function and may need diversion Erectile dysfunction with diabetes Partial response to combination erectile therapy 20 mg daily tadalafil with on demand 100 mg sildenafil Prostatitis/CPPS:? They present for ?evaluation of, chronic pelvic pain syndrome, chronic prostatitis, orchalgia.? He is currently being treated with?- no medications - prior OAB medications - oxybuytinin, Myrbetriq, antibitoics, alpha blockers.? Symptoms have been present?for many years.? Severity of the symptom?Prostate Symptom Score, severe, have been persistent, and are progressive - worse since colon diversion 3 months ago.? Chronic Prostatitis Symptom Index? Have you experienced pain in any of the following areas ?Yes ? Patient has experienced pain with urination ?Yes ? They have experienced pain with ejaculation ?No ? In the pubic area ?No ? Tip of the penis ?No ? Testicles ?Yes ? Perineal ?Yes ? Pain is present?lower back, perineum, testis, with ejaculation.? Associated conditions include? STDs ?No ? nephrolithiasis ?No ? diabetes ?No ? inflammatory bowel disease ?No ? diverticulitis ?No ? radiation to the pelvis ?No ? surgery ?none ? Type of prostatitis?III - noninflammatory.? Lower Urinary Tract Symptoms:? Primarily overactive bladder with urgency and fr equency ? Erections respond to medications ?Cilais 20mg provided. ? Current visit is for?further evaluation of, lower urinary tract symptoms, predominate obstructive symptoms.? Current treatment includes?observation.? Prostate Symptom Score?Mild (0-8), Bother 3.? Prior Prostate Score?unknown.? Prostate volume?< 30 gm.? Testing at next visit will include?bladder scan.? Treatment plan?continue with current medications - failed oxybutynin and solifenacin PFSH Medical History Bipolar disorder Bladder outlet obstruction Dysuria Erectile dysfunction due to arterial insufficiency Esophageal injury GERD (gastroesophageal reflux disease) HTN (hypertension) Insomnia Kidney disease Nocturia Panic disorder Prostatitis Weak urinary stream Surgical History History of surgery Review of Systems Const Denies chills and Denies fever(s) Card Reports no additional complaints and Denies syncope Resp Denies cough GI Denies abdominal pain and Denies heartburn Reports as per HPI and Denies change in libido Neuro Denies syncope Psych Denies change in libido Endo Denies change in libido Physical Exam Const General: cooperative, healthy appearing, comfortable and no acute distress Orientation/consciousness: patient oriented x3 HEENT Face and sinus: Yes normal facial exam Mouth: moist mucous membranes Neck Neck: Yes normal visual inspection, Yes full ROM and Yes trachea midline Chest Chest palpation & inspection: normal inspection of the chest Resp Effort & Inspection: normal respiratory effort, able to speak in complete sentences and no respiratory distress GI Inspection: Yes normal to inspection Back/Spine/Pelvis Cervical Spine: normal cervical lordosis Thoracic/Lumbar Spine: thoracic and lumbar spine normal to inspection Skin General skin exam: no rashes or lesions noted Neuro General: patient oriented x3, gait normal, tone normal and moves all extremities Extrem General: Yes normal to inspection and Yes capillary refill normal Assessment & Plan Assessment & Plan (1) Overactive bladder: Code(s): N32.81 - Overactive bladder Category: Medical Plan Trial fesoterodine Medications: New fesoterodine ER 8 mg PO DAILY 30 tabs 2RF 30 days Discontinued solifenacin Discontinued Reason: Patient Completed Course 5 mg PO DAILY 30 days 30 tabs 2RF Patient Instructions: This note is constructed using voice recognition software. While every effort has been made to ensure accuracy rn social services errors may have been included. Imaging studies, laboratory and physical exam results were discussed and reviewed in detail. No major barriers to patient understanding were identified. An opportunity to ask questions regarding the treatment plan was provided. All questions were answered. The patient expressed understanding and agreement with the above treatment plan. The patient is aware they should contact our office by phone for worsening of their current condition or the appearance of new urologic symptoms. Compliance is encouraged with any medications and followup testing that is ordered. It is a privilege to participate in the urologic care of your patient. If you have any questions or concerns regarding treatment for the above conditions, or other urologic issues, please do not hesitate to contact me. The office telephone contact is [phone]. Sincerely, Dr Tony Lucio MD, [facility] - Urology Compassionate Specialist Care for the Genitourinary System Coding Level of Care Code Est Pt Level 4 (94091) Complex EM visit Add On G2211 Diagnoses Overactive bladder N32.81
== END 2025-04-17 15:18 | disposition home or self-care (01) ==
LOC: HO.HUSH 14:09
PROVIDERS: PCP Internal Medicine; Visit Provider Urology
DX: N32.81 Overactive bladder (principal)
CPT/HCPCS: 99213

== ENCOUNTER → 2025-04-17 14:08 | Outpatient (BNVA) | payer MEDICARE, MEDICAID, SELFPAY | PROVIDERS: PCP Internal Medicine; Visit Provider Urology | DX: N41.0 Acute prostatitis (principal); N32.81 Overactive bladder | CPT/HCPCS: 51798; 99212 ==